=== PATIENT | male | born 1980 | race Caucasian/White ===

== ENCOUNTER 2023-02-11 10:08 | Emergency (ER) | payer OTHER ==
[2023-02-11] MEDS ORDERED: Ondansetron 4 MG/2 ML SDV ONE (10:11)
[2023-02-11] MEDS ORDERED: Sodium Chloride 0.9% 1,000 ML ONE (10:12)
[2023-02-11] MEDS ORDERED: Ondansetron 4 MG/2 ML SDV IVPUSH ONE (10:13)
[2023-02-11] MEDS ORDERED: Sodium Chloride 0.9% 1,000 ML IV ONE (10:13)
[2023-02-11 10:22] LABS: BASOPHILS ABSOLUTE AUTO 0.03 10^3/uL (0.00-0.10); BASOPHILS PERCENT AUTO 0.3 % (0.0-1.0); EOSINOPHILS ABSOLUTE AUTO 0.03 10^3/uL (0.10-0.30); EOSINOPHILS PERCENT AUTO 0.3 % (1.0-3.0); HEMATOCRIT 49.7 % (40.0-52.0); IMMATURE GRAN ABSOLUTE AUTO 0.02 10^3/uL (0.00-0.50); IMMATURE GRAN PERCENT AUTO 0.2 % (0.0-5.0); LYMPHOCYTES PERCENT AUTO 1.8 % (20.0-40.0); MEAN CORPUSCULAR HEMOGLOBIN 29.2 pg (27.0-31.0); MEAN CORPUSCULAR HGB CONC 34.2 g/dL (32.0-36.0); MEAN CORPUSCULAR VOLUME 85.2 fL (82.0-92.0); MEAN PLATELET VOLUME 9.3 fL (7.4-10.4); MONOCYTES ABSOLUTE AUTO 0.76 10^3/uL (0.10-0.80); MONOCYTES PERCENT AUTO 6.7 % (2.0-8.0); NEUTROPHILS ABSOLUTE AUTO 10.34 10^3/uL (2.50-7.00); NEUTROPHILS PERCENT AUTO 90.7 % (50.0-70.0); PLATELET COUNT,PLT 256 10^3/uL (150-400); RED BLOOD CELL COUNT 5.83 10^6/uL (4.50-6.00); RED CELL DISTRIBUTION WIDTH 12.4 % (11.5-14.5); WHITE BLOOD CELL COUNT,WBC 11.38 10^3/uL (5.00-10.00)
[2023-02-11 10:39] LABS: ALBUMIN 4.65 g/dL (3.40-5.00); ANION GAP 16.6 mmol/L (5-15); BILIRUBIN TOTAL 1.2 mg/dL (0.2-1.0); CALCIUM 9.5 mg/dL (8.7-10.3); CARBON DIOXIDE,CO2 23.9 mmol/L (21.0-32.0); CREATININE 1.01 mg/dL (0.51-1.17); EST CRCL DRUG DOSING (CG) 113.04 mL/min; POTASSIUM,K 4.5 mmol/L (3.5-5.1); PROTEIN TOTAL,TP 7.6 g/dL (6.4-8.2)
[2023-02-11] MEDS ORDERED: Metoclopramide 10 MG/2 ML SDV IVPUSH ONE (10:46)
== END 2023-02-11 11:22 | disposition home or self-care (01) ==
LOC: KA.ED 10:08
DX: A08.4 Viral intestinal infection, unspecified (principal); Z79.899 Other long term (current) drug therapy; Z88.8 Allergy status to other drugs, medicaments and biological substances; Z91.048 Other nonmedicinal substance allergy status
CPT/HCPCS: 80053; 83690; 85025; 96361; 96374; 96375; 99284-25; J2405; J2765; J7030